=== PATIENT | female | born 1975 | race Caucasian/White ===

== ENCOUNTER 2017-03-20 10:15 | Day surgery (SDC) | payer OTHER ==
[~2017-03-20 10:15] MED LIST: CEFAZOLIN 2 GM/50 ML (PMX) 50 ML IVPB
[2017-03-20] MEDS ORDERED: PROPOFOL 20 ML (12:28)
[2017-03-20] MEDS ORDERED: FENTAnyl 50 MCG/ML VIAL (12:28)
[2017-03-20] MEDS ORDERED: MIDAZOLAM 1 MG/ML 2 ML INJ (12:28)
[2017-03-20] MEDS ORDERED: ONDANSETRON 4 MG INJ IV ×2 (13:00→14:00)
[2017-03-20] MEDS ORDERED: DIPHENHYDRAMINE 50 MG INJ IV (13:00)
[2017-03-20] MEDS ORDERED: EPHEDrine SULFATE 50 MG/5 ML SYG IV (13:00)
[2017-03-20] MEDS ORDERED: LABETALOL HCL 20MG INJ IV (13:00)
[2017-03-20] MEDS ORDERED: HYDROmorphONE (0.2 MG/ML) 10ML SYG IV ×3 (13:00)
[2017-03-20] MEDS ORDERED: OXYCODONE/ACETAMINOPHEN (5/325) TAB PO (13:00)
[2017-03-20] MEDS ORDERED: METOCLOPRAMIDE 10 MG INJ IV (13:00)
[2017-03-20] MEDS ORDERED: FENTAnyl 50 MCG/ML VIAL IV ×3 (13:00)
[2017-03-20] MEDS ORDERED: MEPERIDINE 25 MG INJ IV (13:00)
[2017-03-20] MEDS ORDERED: CEFAZOLIN 1 GM INJ (13:02)
[2017-03-20] MEDS ORDERED: DEXAMETHASONE 4 MG/ML 1 ML INJ (13:02)
[2017-03-20] MEDS ORDERED: ONDANSETRON 4 MG INJ (13:02)
[2017-03-20] MEDS ORDERED: EPHEDrine SULFATE 50 MG/5 ML SYG (13:02)
[2017-03-20] MEDS ORDERED: KETOROLAC 30 MG INJ (13:02)
[2017-03-20] MEDS ORDERED: FUROSEMIDE 20 MG INJ (13:39)
[2017-03-20] MEDS ORDERED: MEPERIDINE 100 MG INJ (13:52)
[2017-03-20] MEDS ORDERED: HYDROCODONE/APAP (5/325) TAB PO (14:00)
== END 2017-03-20 16:07 | disposition home or self-care (01) ==
LOC: SDS 10:15
DX: N20.0 Calculus of kidney (principal)
CPT/HCPCS: 50590; 74018; 74430; J1940